=== PATIENT | male | born 1980 | race American Indian/Alaskan Native ===

== ENCOUNTER 2017-01-19 04:52 | Emergency (ER) | payer SELFPAY ==
[2017-01-19 05:37] LABS: Hemoglobin 16.5 gm/dl (11.8-15.2); Mean Corpuscular HGB Conc 34 % (32-34); Mean Corpuscular Hemoglobin 32 pg (28-32); Mean Corpuscular Volume 93 fl (84-94); Platelet Count 195 K/mm3 (140-440); Red Blood Count 5.15 M/mm3 (3.65-5.03); White Blood Count 7.4 K/mm3 (4.5-11.0)
[2017-01-19 05:48] LABS: Anion Gap 20 mmol/L; BUN/Creatinine Ratio 18.88; Blood Urea Nitrogen 17 mg/dL (9-20); Calcium 9.5 mg/dL (8.4-10.2); Carbon Dioxide 23 mmol/L (22-30); Chloride 99.4 mmol/L (98-107); Glucose 95 mg/dL (75-100); Potassium 4.2 mmol/L (3.6-5.0); Sodium 138 mmol/L (137-145)
[2017-01-19 07:59] LABS: Basophils % (Manual) 0 % (0.0-1.8); Blastocytes % (Manual) 0 %
[2017-01-19 08:00] LABS: Diff Status Complete; RBC Morphology Normal
[2017-01-19 08:34] LABS: Bilirubin,Urine NEG (Negative); Blood,Urine SM (Negative); Ketones,Urine NEG (Negative); Leukocyte Esterase,Urine NEG (Negative); Mucus,Urine FEW /HPF; Nitrite,Urine NEG (Negative); Protein,Urine <15 mg/dL mg/dL (Negative); Urobilinogen,Urine < 2.0 mg/dL (<2.0)
[2017-01-19 12:11] LABS: Urine Drugs of Abuse Note Disclamer
--- NOTE | 2017-01-19 13:01 | Emergency Department Report ---
ED General Adult HPI - General Chief complaint: Dizziness Stated complaint: DIZZY, FAST HEARTBEAT Time Seen by Provider: 01/19/17 12:04 Source: patient Mode of arrival: Ambulatory Limitations: No Limitations - History of Present Illness Initial comments: Patient states that he's had periodic episodes associated with a fast heart rate or sensation there of. He states that he does breathe very rapidly with these episodes. 3 weeks ago he had an episode that resulted in him falling. When he awoke he was sore all over but had no specific injury. Last night he had another episode which was also associated with hyperventilation. EMS went out to the scene and apparently discussed anxiety and hyperventilation with the patient. He decided not to come to the hospital at that time. He was seen here before in 2016 when his told him he was having a seizure at night. He has never received treatment for seizures. He states these other episodes are not associated with any sort of seizure activity. He does admit that he is aware of stress. He denies any pain associated with these episodes other than the fall as above indicated. He actually has been having episodes like this for a longer time. He is never been evaluated by her primary care physician for the same and does not have one. -: month(s), year(s) Associated Symptoms: denies other symptoms Treatments Prior to Arrival: none - Related Data Previous Rx's Medication Instructions Recorded Last Taken Type Diclofenac [Kamille Trivedi] 75 mg PO Q12H #20 tablet 06/02/15 Unknown Rx Allergies Allergy/AdvReac Type Severity Reaction Status Date / Time No Known Allergies Allergy Unverified 06/02/15 06:23 ED Review of Systems ROS: Stated complaint: DIZZY, FAST HEARTBEAT Other details as noted in HPI Constitutional: denies: chills, fever Eyes: denies: eye pain, eye discharge, vision change ENT: denies: ear pain, throat pain Respiratory: other (apparent hyperventilation). denies: cough, shortness of breath, wheezing Cardiovascular: other ("heart racing"). denies: chest pain, palpitations Endocrine: no symptoms reported Gastrointestinal: denies: abdominal pain, nausea, diarrhea Genitourinary: denies: urgency, dysuria Musculoskeletal: denies: back pain, joint swelling, arthralgia Skin: denies: rash, lesions Neurological: denies: headache, weakness, paresthesias Psychiatric: denies: anxiety, depression Hematological/Lymphatic: denies: easy bleeding, easy bruising ED Past Medical Hx - Past Medical History Previous Medical History?: No - Social History Smoking Status: Current Every Day Smoker Substance Use Type: Alcohol - Medications Home Medications: Home Medications Medication Instructions Recorded Confirmed Last Taken Type Diclofenac [Kamille Trivedi] 75 mg PO Q12H #20 tablet 06/02/15 Unknown Rx ED Physical Exam - General Limitations: No Limitations General appearance: alert, in no apparent distress - Head Head exam: Present: atraumatic, normocephalic - Eye Eye exam: Present: normal appearance, PERRL, EOMI. Absent: scleral icterus - ENT ENT exam: Present: mucous membranes moist - Neck Neck exam: Present: normal inspection - Respiratory Respiratory exam: Present: normal lung sounds bilaterally. Absent: respiratory distress - Cardiovascular Cardiovascular Exam: Present: regular rate, normal rhythm. Absent: systolic murmur, diastolic murmur, rubs, gallop - GI/Abdominal GI/Abdominal exam: Present: soft, normal bowel sounds. Absent: distended, tenderness, guarding, rebound, rigid - Rectal Rectal exam: Present: deferred - Extremities Exam Extremities exam: Present: normal inspection - Back Exam Back exam: Present: normal inspection - Neurological Exam Neurological exam: Present: alert, oriented X3, CN II-XII intact, normal gait, other (cerebellar testing was normal). Absent: motor sensory deficit - Psychiatric Psychiatric exam: Present: normal affect, normal mood - Skin Skin exam: Present: warm, dry, intact, normal color. Absent: rash ED Course Vital Signs 01/19/17 05:03 Temperature 97.9 F Pulse Rate 72 Respiratory 18 Rate Blood Pressure 146/79 O2 Sat by Pulse 96 Oximetry - Reevaluation(s) Reevaluation #1: Patient remained asymptomatic here. 01/19/17 13:00 ED Medical Decision Making - Lab Data Result diagrams: 01/19/17 05:19 01/19/17 05:19 Laboratory Results - last 24 hr 01/19/17 01/19/17 01/19/17 05:19 05:19 08:08 WBC 7.4 RBC 5.15 H Hgb 16.5 H Hct 48.0 H MCV 93 MCH 32 MCHC 34 RDW 13.0 L Plt Count 195 Add Manual Diff Complete Total Counted 100 Seg Neutrophils % Senior Coldfusion Developer Seg Neuts % (Manual) 30.0 L Band Neutrophils % 0 Lymphocytes % (Manual) 56.0 H Reactive Lymphs % (Man) 0 Monocytes % (Manual) 13.0 H Eosinophils % (Manual) 1.0 Basophils % (Manual) 0 Metamyelocytes % 0 Myelocytes % 0 Promyelocytes % 0 Blast Cells % 0 Nucleated RBC % Not Reportable Seg Neutrophils # Man 2.2 Band Neutrophils # 0.0 Lymphocytes # (Manual) 4.1 Abs React Lymphs (Man) 0.0 Monocytes # (Manual) 1.0 H Eosinophils # (Manual) 0.1 Basophils # (Manual) 0.0 Metamyelocytes # 0.0 Myelocytes # 0.0 Promyelocytes # 0.0 Blast Cells # 0.0 WBC Morphology Not Reportable Hypersegmented Neuts Not Reportable Hyposegmented Neuts Not Reportable Hypogranular Neuts Not Reportable Smudge Cells Not Reportable Toxic Granulation Not Reportable Toxic Vacuolation Not Reportable Dohle Bodies Not Reportable Pelger-Huet Anomaly Not Reportable Chanelle Rods Not Reportable Platelet Estimate Appears normal Clumped Platelets Not Reportable Plt Clumps, EDTA Not Reportable Large Platelets Not Reportable Giant Platelets Not Reportable Platelet Satelliting Not Reportable Plt Morphology Comment Not Reportable RBC Morphology Normal Dimorphic RBCs Not Reportable Polychromasia Not Reportable Hypochromasia Not Reportable Poikilocytosis Not Reportable Anisocytosis Not Reportable Microcytosis Not Reportable Macrocytosis Not Reportable Spherocytes Not Reportable Pappenheimer Bodies Not Reportable Sickle Cells Not Reportable Target Cells Not Reportable Tear Drop Cells Not Reportable Ovalocytes Not Reportable Helmet Cells Not Reportable [place] Bodies Not Reportable Byers Rings Not Reportable Dodie Cells Not Reportable Bite Cells Not Reportable Crenated Cell Not Reportable Elliptocytes Not Reportable Acanthocytes (Spur) Not Reportable Rouleaux Not Reportable Hemoglobin C Crystals Not Reportable Schistocytes Not Reportable Malaria parasites Not Reportable Khurram Bodies Not Reportable Hem Pathologist Commnt No Sodium 138 Potassium 4.2 Chloride 99.4 Carbon Dioxide 23 Anion Gap 20 BUN 17 Creatinine 0.9 Estimated GFR > 60 BUN/Creatinine Ratio 18.88 Glucose 95 Calcium 9.5 Troponin T < 0.010 Urine Color Yellow Urine Turbidity Clear Urine pH 5.0 Ur Specific [place] 1.020 Urine Protein <15 mg/dl Urine Glucose (UA) Neg Urine Ketones Neg Urine Blood Sm Urine Nitrite Neg Urine Bilirubin Neg Urine Urobilinogen < 2.0 Ur Leukocyte Esterase Neg Urine WBC (Auto) 1.0 Urine RBC (Auto) 3.0 U Epithel Cells (Auto) < 1.0 Urine Mucus Few Urine Opiates Screen Urine Methadone Screen Ur Barbiturates Screen Ur Phencyclidine Scrn Ur Amphetamines Screen U Benzodiazepines Scrn Urine Cocaine Screen U Marijuana (THC) Screen Drugs of Abuse Note 01/19/17 01/19/17 10:19 12:09 WBC RBC Hgb Hct MCV MCH MCHC RDW Plt Count Add Manual Diff Total Counted Seg Neutrophils % Seg Neuts % (Manual) Band Neutrophils % Lymphocytes % (Manual) Reactive Lymphs % (Man) Monocytes % (Manual) Eosinophils % (Manual) Basophils % (Manual) Metamyelocytes % Myelocytes % Promyelocytes % Blast Cells % Nucleated RBC % Seg Neutrophils # Man Band Neutrophils # Lymphocytes # (Manual) Abs React Lymphs (Man) Monocytes # (Manual) Eosinophils # (Manual) Basophils # (Manual) Metamyelocytes # Myelocytes # Promyelocytes # Blast Cells # WBC Morphology Hypersegmented Neuts Hyposegmented Neuts Hypogranular Neuts Smudge Cells Toxic Granulation Toxic Vacuolation Dohle Bodies Pelger-Huet Anomaly Chanelle Rods Platelet Estimate Clumped Platelets Plt Clumps, EDTA Large Platelets Giant Platelets Platelet Satelliting Plt Morphology Comment RBC Morphology Dimorphic RBCs Polychromasia Hypochromasia Poikilocytosis Anisocytosis Microcytosis Macrocytosis Spherocytes Pappenheimer Bodies Sickle Cells Target Cells Tear Drop Cells Ovalocytes Helmet Cells Randall-[place] Bodies Byers Rings [place] Cells Bite Cells Crenated Cell Elliptocytes Acanthocytes (Spur) Rouleaux Hemoglobin C Crystals Schistocytes Malaria parasites Khurram Bodies Hem Pathologist Commnt Sodium Potassium Chloride Carbon Dioxide Anion Gap BUN Creatinine Estimated GFR BUN/Creatinine Ratio Glucose Calcium Troponin T < 0.010 Urine Color Urine Turbidity Urine pH Ur Specific [place] Urine Protein Urine Glucose (UA) Urine Ketones Urine Blood Urine Nitrite Urine Bilirubin Urine Urobilinogen Ur Leukocyte Esterase Urine WBC (Auto) Urine RBC (Auto) U Epithel Cells (Auto) Urine Mucus Urine Opiates Screen Presumptive negative Urine Methadone Screen Presumptive negative Ur Barbiturates Screen Presumptive negative Ur Phencyclidine Scrn Presumptive negative Ur Amphetamines Screen Presumptive negative U Benzodiazepines Scrn Presumptive negative Urine Cocaine Screen Presumptive negative U Marijuana (THC) Screen Presumptive negative Drugs of Abuse Note Disclamer Critical care attestation.: If time is entered above; I have spent that time in minutes in the direct care of this critically ill patient, excluding procedure time. ED Disposition Clinical Impression: Tachycardia, Anxiety Disposition: DISCHARGED TO HOME OR SELFCARE Is pt being admited?: No Does the pt Need Aspirin: No Condition: Stable Instructions: Supraventricular Tachycardia (ED), Anxiety (ED) Additional Instructions: These episodes seem to be consistent with anxiety attacks. However it is a possibility that you may be suffering from abnormal heart rhythms. It would be helpful to come to the emergency department while one of these episodes is transpiring. At this point it would be appropriate to follow-up with a primary care physician. Return any acute change or worsening symptoms. Referrals: LILIA JOLLY MD [Primary Care Provider] - 3-5 Days [facility] [Provider Group] - 2-3 Days ESHA BEASLEY MD [Staff Physician] - 2-3 Days Time of Disposition: 13:01
[2017-01-19 13:06] VITALS: BP 136/78
== END 2017-01-19 13:38 | disposition home or self-care (01) ==
LOC: ED 04:52
DX: R00.0 Tachycardia, unspecified (principal); F41.9 Anxiety disorder, unspecified; F17.200 Nicotine dependence, unspecified, uncomplicated
CPT/HCPCS: 36415; 80048; 80307; 81001; 84484; 85007; 85025; 93005; 93010

== ENCOUNTER 2020-09-09 15:44 | Emergency (ER) | payer MEDICAID ==
[2020-09-09 16:02] VITALS: BP 166/83
--- NOTE | 2020-09-09 16:32 | Emergency Department Report ---
ED ENT HPI - General Chief complaint: Dental/Oral Stated complaint: RT SIDE ABCESS/TOOTHACHE PAIN Time Seen by Provider: 09/09/20 16:27 Source: patient Mode of arrival: Ambulatory Limitations: No Limitations - History of Present Illness Initial comments: The patient was evaluated in the emergency department for symptoms described in the history of present illness. He/she was evaluated in the context of the global COVID-19 pandemic, which necessitated consideration that the patient might be at risk for infection with the virus that causes COVID-19. Institutional protocols and algorithms that pertain to the evaluation of patients at risk for COVID-19 are in a state of rapid change based on information released by regulatory bodies including the CDC and federal and state organizations. These policies and algorithms were followed during the patient's care in the emergency department. Please note that these policies, procedures and recommendations changed on a rapid basis. 39-year-old -[place] male presents to the emergency room complaining of right side lower tooth ache and pain with swelling to his gum for 2 to 3 days. Patient reports he is aware that he has a bad tooth in his mouth. Patient states that the pain is about 3-4 out of 10. He does not have a dentist at this time. Denies any past medical history. No fever no chills no nausea no vomiting. MD complaint: tooth pain Onset/Timin -: days(s) Location: tooth # (30) Severity: moderate Severity scale (0 -10): 3 Quality: stabbing, aching, sharp Consistency: constant Improves with: none Worsens with: none Context- Dental: history of dental caries, poor dental care Associated Symptoms: gum swelling - Related Data Previous Rx's Medication Instructions Recorded Last Taken Type Diclofenac [Kamille Trivedi] 75 mg PO Q12H #20 tablet 06/02/15 Unknown Rx Clindamycin [Clindamycin CAP] 300 mg PO Q8H #30 cap 09/09/20 Unknown Rx Ibuprofen [Motrin 800 MG tab] 800 mg PO Q8HR PRN #30 tablet 09/09/20 Unknown Rx Allergies Allergy/AdvReac Type Severity Reaction Status Date / Time No Known Allergies Allergy Unverified 06/02/15 06:23 ED Dental HPI - General Chief complaint: Dental/Oral Stated complaint: RT SIDE ABCESS/TOOTHACHE PAIN Time Seen by Provider: 11/07/20 16:27 Source: patient Mode of arrival: Ambulatory Limitations: No Limitations - Related Data Previous Rx's Medication Instructions Recorded Last Taken Type Diclofenac Dr [Voltaren Dr] 75 mg PO Q12H #20 tablet 06/02/15 Unknown Rx Clindamycin [Clindamycin CAP] 300 mg PO Q8H #30 cap 09/09/20 Unknown Rx Ibuprofen [Motrin 800 MG tab] 800 mg PO Q8HR PRN #30 tablet 09/09/20 Unknown Rx Allergies Allergy/AdvReac Type Severity Reaction Status Date / Time No Known Allergies Allergy Unverified 06/02/15 06:23 ED Review of Systems ROS: Stated complaint: RT SIDE ABCESS/TOOTHACHE PAIN Other details as noted in HPI Comment: All other systems reviewed and negative ED Past Medical Hx - Past Medical History Previous Medical History?: No - Surgical History Past Surgical History?: No - Social History Smoking Status: Current Every Day Smoker Substance Use Type: Alcohol - Medications Home Medications: Home Medications Medication Instructions Recorded Confirmed Last Taken Type Diclofenac Dr [Voltaren Dr] 75 mg PO Q12H #20 tablet 06/02/15 Unknown Rx Clindamycin [Clindamycin CAP] 300 mg PO Q8H #30 cap 09/09/20 Unknown Rx Ibuprofen [Motrin 800 MG tab] 800 mg PO Q8HR PRN #30 tablet 09/09/20 Unknown Rx ED Physical Exam - General Limitations: No Limitations General appearance: alert, in no apparent distress - Head Head exam: Present: atraumatic, normocephalic - Eye Eye exam: Present: normal appearance - ENT ENT exam: Present: mucous membranes moist - Expanded ENT Exam Expanded Teeth exam: Present: dental caries, fractured tooth # (30), dental tenderness # (30), gingival enlargement, other (Right lower jaw swelling) - Neck Neck exam: Present: normal inspection, full ROM - Respiratory Respiratory exam: Absent: accessory muscle use - Back Exam Back exam: Present: normal inspection, full ROM - Neurological Exam Neurological exam: Present: alert, oriented X3, normal gait - Psychiatric Psychiatric exam: Present: normal affect, normal mood - Skin Skin exam: Present: warm, dry, intact, normal color. Absent: rash ED Course Vital Signs 09/09/20 16:00 Temperature 98.4 F Pulse Rate 79 Respiratory 16 Rate Blood Pressure 166/83 O2 Sat by Pulse 96 Oximetry ED Medical Decision Making - Medical Decision Making 39-year-old -[place] male presents to the emergency room complaining of right side lower tooth ache and pain with swelling to his gum for 2 to 3 days. Patient reports he is aware that he has a bad tooth in his mouth. Patient states that the pain is about 3-4 out of 10. He does not have a dentist at this time. Denies any past medical history. No fever no chills no nausea no vomiting. Clindamycin 300 mg 3 times daily for 10 days. Ibuprofen 800 mg p.o. every 8 hours as needed. Follow-up with a dentist. Critical care attestation.: If time is entered above; I have spent that time in minutes in the direct care of this critically ill patient, excluding procedure time. ED Disposition Clinical Impression: Dental abscess Disposition: TO HOME OR SELFCARE Is pt being admited?: No Does the pt Need Aspirin: No Condition: Stable Instructions: Dental Abscess, [id number] Additional Instructions: Complete antibiotics as prescribed. Take pain medication as needed. Be sure to rinse your mouth out with Listerine and to follow-up with a dentist. Prescriptions: Clindamycin [Clindamycin CAP] 300 mg PO Q8H #30 cap Ibuprofen [Motrin 800 MG tab] 800 mg PO Q8HR PRN #30 tablet PRN Reason: Pain , Severe (7-10) Referrals: [facility] [Outside] - 3-5 Days [facility] [Outside] - 3-5 Days Forms: Work/School Release Form(ED)
== END 2020-09-09 16:58 | disposition home or self-care (01) ==
LOC: ED 15:44
DX: K04.7 Periapical abscess without sinus (principal)
CPT/HCPCS: 99282

== ENCOUNTER 2020-11-11 11:13 | Emergency (ER) | payer MEDICAID ==
[2020-11-11 11:21] VITALS: BP 147/85
--- NOTE | 2020-11-11 12:18 | XRay Report ---
CHEST 2 VIEWS, 11/11/2020 12:11 PM INDICATION: Chest pain COMPARISON: Chest radiograph, 12/10/2011 FINDINGS: Support devices: None. Heart: The cardiac silhouette is normal in size. Lungs/pleura: The lungs are clear of focal airspace disease or significant pleural effusion. Additional findings: No significant acute abnormality. IMPRESSION: 1. No evidence of acute cardiopulmonary process. Signer Name: Victorina Cisneros MD Signed: 11/11/2020 12:13 PM Workstation Name: [email or web address]
--- NOTE | 2020-11-11 13:01 | Emergency Department Report ---
ED General Adult HPI - General Chief complaint: Chest Pain Stated complaint: CHEST PAIN Time Seen by Provider: 11/11/20 13:00 Source: patient Mode of arrival: Ambulatory Limitations: No Limitations - History of Present Illness Initial comments: Patient is a 39-year-old male who presents emergency room complaints of chest pain across the chest that began yesterday morning. Patient states that he does frequent heavy lifting at his job. He states his pain is worse with certain movements and with pressing on the chest. He denies any cough, nausea, vo miting, diarrhea, fever, hemoptysis, shortness of breath, leg swelling. He denies any recent travel, recent surgery, hormone use, sick contacts. He denies any medication allergies. No PMHx. no daily medications. He states that his only family cardiac history is that his mother is from an [place] at 62. - Related Data Previous Rx's Medication Instructions Recorded Last Taken Type Elizabeth Trivedi [Kamille Trivedi] 75 mg PO Q12H #20 tablet 06/02/15 Unknown Rx Clindamycin [Clindamycin CAP] 300 mg PO Q8H #30 cap 09/09/20 Unknown Rx Ibuprofen [Motrin 800 MG tab] 800 mg PO Q8HR PRN #30 tablet 09/09/20 Unknown Rx Naproxen [EC-Naprosyn] 500 mg PO BID PRN #14 tablet. 11/11/20 Unknown Rx methOCARBAMOL [Robaxin TAB] 500 mg PO BID PRN #14 tab 11/11/20 Unknown Rx Allergies Allergy/AdvReac Type Severity Reaction Status Date / Time No Known Allergies Allergy Unverified 06/02/15 06:23 ED Review of Systems ROS: Stated complaint: CHEST PAIN Other details as noted in HPI Comment: All other systems reviewed and negative ED Past Medical Hx - Past Medical History Previous Medical History?: No - Surgical History Past Surgical History?: No - Social History Smoking Status: Current Every Day Smoker - Medications Home Medications: Home Medications Medication Instructions Recorded Confirmed Last Taken Type Elizabeth Trivedi [Kamille Trivedi] 75 mg PO Q12H #20 tablet 06/02/15 Unknown Rx Clindamycin [Clindamycin CAP] 300 mg PO Q8H #30 cap 09/09/20 Unknown Rx Ibuprofen [Motrin 800 MG tab] 800 mg PO Q8HR PRN #30 tablet 09/09/20 Unknown Rx Naproxen [EC-Naprosyn] 500 mg PO BID PRN #14 tablet. 11/11/20 Unknown Rx methOCARBAMOL [Robaxin TAB] 500 mg PO BID PRN #14 tab 11/11/20 Unknown Rx ED Physical Exam - General Limitations: No Limitations General appearance: alert, in no apparent distress - Head Head exam: Present: atraumatic, normocephalic - Eye Eye exam: Present: normal appearance - ENT ENT exam: Present: mucous membranes moist - Respiratory Respiratory exam: Present: normal lung sounds bilaterally, chest wall tenderness (reproducible anterior chest wall ttp, no crepitus, no deformity, no ecchymosis, no skin changes). Absent: respiratory distress, wheezes, rales, rhonchi, str idor, accessory muscle use, decreased breath sounds, prolonged expiratory - Cardiovascular Cardiovascular Exam: Present: regular rate, normal rhythm, normal heart sounds. Absent: systolic murmur, diastolic murmur, rubs, gallop - Neurological Exam Neurological exam: Present: alert, oriented X3 - Psychiatric Psychiatric exam: Present: normal affect, normal mood - Skin Skin exam: Present: warm, dry, intact ED Course Vital Signs 11/11/20 11:19 Temperature 98.3 F Pulse Rate 81 Respiratory 18 Rate Blood Pressure 147/85 O2 Sat by Pulse 98 Oximetry ED Medical Decision Making - Lab Data Result diagrams: 11/11/20 12:12 11/11/20 12:12 - EKG Data EKG shows normal: sinus rhythm, axis, intervals, QRS complexes, ST-T waves Rate: normal - Radiology Data Radiology results: report reviewed Ordering Physician: ISRAEL ADRIAN Date of Service: 11/11/20 Procedure(s): XR chest routine 2V Accession Number(s): [id number] cc: ISRAEL ADRIAN Fluoro Time In Minutes: CHEST 2 VIEWS, 11/11/2020 12:11 PM INDICATION: Chest pain COMPARISON: Chest radiograph, 12/10/2011 FINDINGS: Support devices: None. Heart: The cardiac silhouette is normal in size. Lungs/pleura: The lungs are clear of focal airspace disease or significant pleural effusion. Additional findings: No significant acute abnormality. IMPRESSION: 1. No evidence of acute cardiopulmonary process. Signer Name: Victorina Cisneros MD Signed: 11/11/2020 12:13 PM Workstation Name: [id number] Transcribed By: EB Dictated By: Victorina Cisneros MD Electronically Authenticated By: Victorina Cisneros MD Signed Date/Time: 11/11/20 1213 DD/ 1212 TD/TT: - Medical Decision Making Patient is a 39-year-old male who presents emergency room complaints of chest pain across the chest that began yesterday morning. Patient states that he does frequent heavy lifting at his job. He states his pain is worse with certain movements and with pressing on the chest. He denies any cough, nausea, v omiting, diarrhea, fever, hemoptysis, shortness of breath, leg swelling. He denies any recent travel, recent surgery, hormone use, sick contacts. He denies any medication allergies. No PMHx. no daily medications. He states that his only family cardiac history is that his mother is from an [place] at 62. vss. on exam:reproducible anterior chest wall ttp, no crepitus, no deformity, no ecchymosis, no skin changes. Labs are normal. Troponin is negative. CXR: 1. No evidence of acute cardiopulmonary process. EKG is within normal limits. Perc criteria negative, C-spine can be cleared clinically. Heart score is 1, symptoms do not appear consistent with ACS. Symptoms appear most consistent with costochondritis. Patient given prescription for naproxen and Robaxin. Advised patient Please take medication as prescribed. May use ice pack, heating pad, rest, Epsom salt bath. Follow-up with a primary care doctor for reexamination. Return to emergency room immediately for any new or worsening symptoms - Differential Diagnosis Costochondritis, GERD, anemia, anxiety, ACS, PTX, PNA, pericarditis, PE Critical care attestation.: If time is entered above; I have spent that time in minutes in the direct care of this critically ill patient, excluding procedure time. ED Disposition Clinical Impression: Atypical chest pain Disposition: DC-01 TO HOME OR SELFCARE Is pt being admited?: No Does the pt Need Aspirin: No Condition: Stable Instructions: Costochondritis, Chest Pain (ED) Additional Instructions: Please take medication as prescribed. May use ice pack, heating pad, rest, Epsom salt bath. Follow-up with a primary care doctor for reexamination. Return to emergency room immediately for any new or worsening symptoms Prescriptions: Naproxen [EC-Naprosyn] 500 mg PO BID PRN #14 tablet. PRN Reason: pain methOCARBAMOL [Robaxin TAB] 500 mg PO BID PRN #14 tab PRN Reason: pain Referrals: PRIMARY CARE,MD [Primary Care Provider] - 2-3 Days Time of Disposition: 14:13 Print Language: LATVIAN Heart Score - HEART Score History: Slightly suspicious EKG: Normal Age: < 45 Risk factors: 1-2 risk factors Troponin: < normal limit HEART Score: 1
[2020-11-11 13:21] LABS: Basophils % (Auto) 0.3 % (0.0-1.8); Eosinophils # (Auto) 0.1 K/mm3 (0.0-0.4); Eosinophils % (Auto) 1.1 % (0.0-4.3); Hematocrit 43.9 % (35.5-45.6); Hemoglobin 15.1 gm/dl (11.8-15.2); Lymphocytes # (Auto) 3.4 K/mm3 (1.2-5.4); Lymphocytes % (Auto) 48.2 % (13.4-35.0); Mean Corpuscular HGB Conc 34 % (32-34); Mean Corpuscular Volume 94 fl (84-94); Monocytes # (Auto) 0.8 K/mm3 (0.0-0.8); Platelet Count 277 K/mm3 (140-440); Red Blood Count 4.66 M/mm3 (3.65-5.03); Red Cell Distribution Width 13.8 % (13.2-15.2)
[2020-11-11 13:47] LABS: Alanine Aminotransferase 18 units/L (7-56); Albumin 4.6 g/dL (3.9-5); BUN/Creatinine Ratio 20; Blood Urea Nitrogen 16 mg/dL (9-20); Calcium 9.8 mg/dL (8.4-10.2); Hemolysis Index 4
== END 2020-11-11 14:25 | disposition home or self-care (01) ==
LOC: ED 11:13
DX: R07.89 Other chest pain (principal); F17.200 Nicotine dependence, unspecified, uncomplicated; Z79.1 Long term (current) use of non-steroidal anti-inflammatories (NSAID); Z79.899 Other long term (current) drug therapy
CPT/HCPCS: 36415; 71046; 80053; 84484; 85025; 93005